=== PATIENT | male | born 1945 | race Caucasian/White ===

== ENCOUNTER → 2023-01-24 15:26 | Outpatient (CLI) | payer MEDICARE, SELFPAY ==
--- NOTE | 2023-01-28 08:02 | PM.PFT.1 ---
Pulmonary Function Test Referral & Results Date Patient Seen: 01/24/23 Results: The spirometry demonstrates an FVC of 3.70 L which is 94% of predicted. The FEV1 was measured at 2.59 L which is 91% of predicted. The FEV1/FVC ratio was 70 which is 96% of predicted. Following the administration of bronchodilator there was no appreciable change to above normal numbers. Lung volumes show an SVC of 5.22 L which is 121% of predicted. The diffusing capacity was measured at 15.08 which is 48% of predicted. No hemoglobin value was provided, so no correction for potential anemia could be made, if appropriate. The maximum voluntary ventilation was normal Interpretation: This study demonstrates normal spirometry but moderate to moderately severe reduction diffusing capacity suggest significant disease at the capillary alveolar level, unless patient is anemic as above Clinical correlation suggested
== END ==
PROVIDERS: PCP Student in an Organized Health Care Education/Training Program; Referring Provider Student in an Organized Health Care Education/Training Program; Visit Provider Student in an Organized Health Care Education/Training Program
DX: J44.1 Chronic obstructive pulmonary disease with (acute) exacerbation (principal); J98.8 Other specified respiratory disorders; Z87.891 Personal history of nicotine dependence
CPT/HCPCS: 94060; 94726; 94729